=== PATIENT | female | born 1985 | race Caucasian/White ===

== ENCOUNTER → 2016-06-06 | Outpatient (CLI) | payer BC ==
[~2016-06-06] MED LIST: AMBI5TAB PO; DIPH1TAB36 PO; MOBI15TA PO; PERC5TAB12 PO; ULTR50TA5 PO; ZOFR8TAB4 SL
[2016-06-06 14:17] LABS: BLOOD, URINE MOD (NEG); COMMENT (UR) CULT NOT INDICATED; CULTURE IF INDICATED CULT NOT INDICATED; GLUCOSE,URINE NEG (NEG); KETONE, URINE NEG (NEG); MUCUS URINE FEW /lpf (OCC); NITRITE,URINE NEG (NEG); SQUAMOUS EPITHELIAL CELL URINE 4 /hpf (0-5); URINE COLOR LIGHT-YELLOW (YELLW/STRAW)
[2016-06-06 14:24] LABS: BETA HCG QUANT LESS THAN 1 MIU/ML (0-5)
--- NOTE | 2016-06-13 09:14 | EKG ---
Date Performed: 06/06/2016 Time Performed: 13:34:19 PTAGE: 31 years EKG: Sinus rhythm POSSIBLE LEFT ATRIAL ENLARGEMENT POSSIBLE RIGHT VENTRICULAR CONDUCTION DELAY BORDERLINE ECG Compared to prior tracing no significant change NO PREVIOUS TRACING DOCTOR: Lester Vasquez Interpretating Date/Time 06/13/2016 09:13:01
== END ==
LOC: CPRE 13:08
PROVIDERS: ATTEND Obstetrics & Gynecology
DX: Z01.810 Encounter for preprocedural cardiovascular examination (principal); Z01.811 Encounter for preprocedural respiratory examination; Z01.812 Encounter for preprocedural laboratory examination; I73.9 Peripheral vascular disease, unspecified; I71.4 Abdominal aortic aneurysm, without rupture
CPT/HCPCS: 36415; 81001; 84702; 93005

== ENCOUNTER 2016-06-08 11:01 | Inpatient (IN) | payer BC ==
--- NOTE | 2016-06-07 09:55 | MH ---
cc: APRIL RIOS DATE OF ADMISSION: 06/08/2016 ADMISSION DIAGNOSIS Menorrhagia, dysmenorrhea with multiple fibroids. HISTORY OF PRESENT ILLNESS The patient is a 31-year-old single white female, para 0-0-1-0, with a history of two years of increasing menstrual flow and menstrual pain refractory to OCPs and additional medical therapy. Her vaginal ultrasound from 02/20/2016 showed three exophytic fibroids and one in the body measuring 5.6 cm. Ovaries appeared normal. She is now admitted for myomectomy. PAST MEDICAL HISTORY PREVIOUS SURGERY Repair of right chest lacerations 11/13. MEDICATIONS Vitamins. ALLERGIES None. TRANSFUSIONS None. OBSTETRICAL HISTORY One spontaneous . SOCIAL HISTORY She is single. She works as a dental medical receptionist assistant. Alcohol occasional. Tobacco none. Drugs none. FAMILY HISTORY Non-contributory. PHYSICAL EXAMINATION GENERAL: A well-nourished, well-developed white female. VITAL SIGNS: Stable. HEENT: Exam is normal. CHEST: Clear. HEART: Regular rate. BREASTS: Symmetrical. ABDOMEN: Benign. PELVIC EXAM: Normal external genitalia and BUS. Vagina is normal. Cervix normal. Uterus enlarged at 14 weeks' size. Adnexa not palpable. ASSESSMENT As above. PLAN She is now admitted for laparoscopy with probable laparotomy, open myomectomy. I explained the procedures, the risks, benefits and complications including infection, injury, bleeding, probable need for delivery and the fact that recurrences are common and childbearing if desired should be planned in the next few years. The patient would like to proceed. MD YURI Rausch/MACI /9:33 AM /9:46 AM
[~2016-06-08] VITALS: Ht 175.3 cm; Wt 69.6 kg
[~2016-06-08 11:01] MED LIST changes: -AMBI5TAB PO; -MOBI15TA PO; -PERC5TAB12 PO; -ULTR50TA5 PO; -ZOFR8TAB4 SL
[2016-06-08] MEDS ORDERED: BUPIVACAINE LIPOSOME PF 1.3% 20 ML VIAL ONE (11:07)
[2016-06-08 11:36] VITALS: PULSE 66; RESP 18; TEMP 97.7; O2SAT 99
[2016-06-08] MEDS ORDERED: ACETAMINOPHEN 1000 MG/100 ML VIAL IV ONE (11:37)
[2016-06-08] MEDS ORDERED: ceFAZolin 2 GM PREMIX 50 ML ONE (11:37)
[2016-06-08 11:59] VITALS: BP 125/80
[2016-06-08] MEDS ORDERED: KETOROLAC TROMETHAMINE 60 MG/2 ML (IM) VIAL IM ONE (12:00)
[2016-06-08] MEDS ORDERED: ONDANSETRON HCL 4 MG/2 ML VIAL IV PUSH ONE (12:00)
[2016-06-08] MEDS ORDERED: PROPOFOL 200 MG/20 ML AMP IV ONE (12:00)
[2016-06-08] MEDS ORDERED: NEOSTIGMINE 3 MG/3 ML SYR IV ONE (12:00)
[2016-06-08] MEDS ORDERED: LACTATED RINGER'S 1000 ML INJ 1,000 ML IV ONE (12:00)
[2016-06-08] MEDS ORDERED: SODIUM CHLORID 0.9% 500 ML IV SCH (12:15)
[2016-06-08] MEDS ORDERED: ceFAZolin 2 GM PREMIX 50 ML IV SCH (12:15)
[2016-06-08] MEDS ORDERED: INSULIN HUMAN REGULAR 1,000 UNITS/10 ML VIAL SQ PRN (12:15)
[2016-06-08] MEDS ORDERED: METOPROLOL TARTRATE 25 MG TAB PO PRN (12:15)
[2016-06-08] MEDS ORDERED: ACETAMINOPHEN 1000 MG/100 ML VIAL IV SCH (12:15)
[2016-06-08] MEDS ORDERED: LACTATED RINGER'S 1000 ML IV SCH (12:15)
[2016-06-08] MEDS ORDERED: DEXAMETHASONE SOD PHOS 4 MG/ML VIAL ONE (12:17)
[2016-06-08] MEDS ORDERED: MIDAZOLAM HCL 2 MG/2 ML VIAL ONE ×2 (12:17→17:06)
[2016-06-08] MEDS ORDERED: FAMOTIDINE 20 MG/2 ML VIAL ONE (12:17)
[2016-06-08] MEDS ORDERED: HYDROmorphone HCL PF 1 MG/ML VIAL IV PRN (14:30)
[2016-06-08] MEDS: KETOROLAC TROMETHAMINE 30 MG/ML (IVP) VIAL IVP SCH ×2 (14:30→21:35)
[2016-06-08] MEDS ORDERED: diphenhydrAMINE HCL 25 MG CAP PO PRN (14:30)
[2016-06-08] MEDS ORDERED: SODIUM CHLORIDE 0.9% FLUSH 5 ML FLUSH FLUSH PRN (14:30)
[2016-06-08] MEDS ORDERED: ONDANSETRON ODT 4 MG TAB PO PRN (14:30)
[2016-06-08] MEDS ORDERED: ONDANSETRON HCL 4 MG/2 ML VIAL IV PRN (14:30)
[2016-06-08] MEDS ORDERED: PROMETHAZINE INJ 25 MG/ML VIAL IM PRN (14:30)
[2016-06-08] MEDS ORDERED: PROMETHAZINE HCL 25 MG TAB PO PRN (14:30)
[2016-06-08] MEDS ORDERED: fentaNYL CITRATE 250 MCG/5 ML AMP ONE (14:53)
[2016-06-08] MEDS ORDERED: ONDANSETRON INJ 8 MG in DEXTROSE 5% IN WATER INJ 50 ML IV PRN ×2 (15:00)
[2016-06-08] MEDS ORDERED: *morphine SULFATE 8 MG/ML PERIprocedure ONLY ONE ×2 (15:05→15:52)
[2016-06-08] MEDS: D5-1/2 NS + KCL 20 MEQ INJ 1,000 ML IV SCH ×2 (15:15)
[2016-06-08] MEDS ORDERED: *MEPERIDINE 25 MG INJ VIAL PERIprocedural Use ONLY ONE (15:18)
[2016-06-08] MEDS ORDERED: *PROMETHAZINE 25 MG/ML VIAL PERIprocedural use ONLY ONE (15:23)
[2016-06-08 17:23] LABS: HEMATOCRIT 31.4 % (35.0-46.0); REVIEW FLAG FINAL
[2016-06-08 20:00] VITALS: BP 117/70; PULSE 84; RESP 16; TEMP 97.4; O2SAT 99
[2016-06-08] MEDS: ACETAMINOPHEN 1000 MG/100 ML VIAL IV SCH (20:49)
[2016-06-08] MEDS: ZOLPIDEM TARTRATE 5 MG TAB PO PRN (20:49)
[2016-06-08] MEDS ORDERED: SODIUM CHLORIDE 0.9% FLUSH 5 ML FLUSH FLUSH SCH (21:00)
[2016-06-09] VITALS: BP 109/60; PULSE 87; RESP 16; TEMP 97.9; O2SAT 97
[2016-06-09] MEDS: KETOROLAC TROMETHAMINE 30 MG/ML (IVP) VIAL IVP SCH ×4 (02:30→20:48)
[2016-06-09] MEDS: ACETAMINOPHEN 1000 MG/100 ML VIAL IV SCH ×3 (04:47→19:51)
[2016-06-09 05:00] VITALS: BP 104/60; PULSE 76; RESP 16; TEMP 98.1; O2SAT 96
[2016-06-09] MEDS: DOCUSATE SODIUM 100 MG CAP PO SCH ×2 (05:33→15:13)
[2016-06-09 06:02] LABS: BASOPHIL % 0.2 % (0.0-2.0); HEMATOCRIT 31.9 % (35.0-46.0); HEMO FLAGS DIFF FINAL; LYMPH % 12.5 % (9.0-44.0); LYMPHOCYTE # 1.6 TH/MM3 (1.0-4.8); MEAN CELL VOLUME 89.2 FL (80.0-100.0); MEAN CORPUSCULAR HGB CONC 34.8 % (32.0-36.0); MONO % 10.6 % (0.0-8.0); NEUT % 76.7 % (16.0-70.0); PLATELET COUNT 269 TH/MM3 (150-450); RED BLOOD COUNT 3.58 MIL/MM3 (4.00-5.30); WHITE BLOOD COUNT 13.1 TH/MM3 (4.0-11.0)
[2016-06-09 06:35] LABS: BICARBONATE 28.4 MEQ/L (21.0-32.0); POTASSIUM 4.2 MEQ/L (3.5-5.1)
--- NOTE | 2016-06-09 07:44 | MP ---
cc: GABRIELAPRIL DATE OF SURGERY 06/08/2016 PREOPERATIVE DIAGNOSIS Menorrhagia, dysmenorrhea secondary to uterine fibroids. POSTOPERATIVE DIAGNOSIS Menorrhagia, dysmenorrhea secondary to uterine fibroids. PROCEDURE PERFORMED Laparoscopy followed by laparotomy with open myomectomy, multiple. ANESTHESIA General ET. SURGEON April Blanchard MD EQUINE DENTIST Lian Laguna, JF ESTIMATED BLOOD LOSS 100 cc FLUIDS 1 liter crystalloid. OBJECTIVE FINDINGS Following the induction of adequate general endotracheal anesthesia, the patient was prepped and draped supine on the operating table in sterile fashion with the bladder being drained by Sanchez catheterization. The abdomen was opened through a 0.5-cm infraumbilical incision. A 5 port was placed, laparoscope inserted, a second port placed in the left lower quadrant. The uterus was about 14 weeks' size. At the fundus there were four fibroids that were subserosal and then anteriorly just to the right of the lower segment and the cervix was another 5-cm fibroid just beneath the bladder flap. That location was felt to be close to the ureter and major vessels so it was felt best to proceed with laparotomy. The laparoscope was withdrawn, the gas allowed to escape. The abdomen was opened through a 10-cm Pfannenstiel incision using knife to cut down through skin to the fascia. The fascia was opened transversely, stripped from the muscles, the rectus muscle split in the midline and the peritoneum was opened sharply without incident, laps and the elastic retractor placed. The bowel was packed from the operative field with moistened laps and the fibroid over the lower anterior segment was exposed. The bladder flap was taken off sharply and then the fibroid gently dissected free and sent for permanent study. The defect in the uterine wall was closed in two layers with interrupted sutures of Vicryl in [id number] fashion. Irrigation was performed and no bleeding was evident. Attention as now directed to the fundus and the posterior uterus where these fibroids were dissected free and sent for permanent study. There was one more about 5 cm, one more about 2 and two small 1-cm fibroids. These wounds were closed with interrupted sutures of 0 Vicryl in [id number] fashion. The tubes and ovaries were normal. The cul-de-sacs were clear. The appendix was normal. The liver edge was normal. Irrigation was performed, no bleeding was evident so the posterior wounds were closed in good approximation and were coated with Evacel. Attention now directed to the anterior site which was also not bleeding. The bladder flap was reapproximated with 0 Vicryl stitches interrupted and these wounds irrigated and then closed, covered with Evicel. All laps and retractors were removed. Counts were correct. The anterior peritoneum was closed with a running 2-0 Vicryl, the fascia with running locking stitch of 0 Vicryl from corner to midline and tied, the subcu with running 3-0 Vicryl and the skin with a running subcuticular 3-0 Monocryl. The small port sites were closed with 3-0 Monocryl, Dermabond applied, all counts correct and the patient was awakened and taken to Recovery in good condition. MD YURI Rausch/MACI /2:27 PM /7:25 AM EVELINE
[2016-06-09 08:00] VITALS: BP 106/72; PULSE 80; RESP 16; TEMP 98.4
[2016-06-09 12:00] VITALS: BP 105/68; PULSE 77; RESP 16; TEMP 98.3
[2016-06-09 16:00] VITALS: BP 102/68; PULSE 78; RESP 18; TEMP 98.8
[2016-06-09 19:30] VITALS: BP 104/59; PULSE 73; RESP 20; TEMP 97.9
[2016-06-09] MEDS: ZOLPIDEM TARTRATE 5 MG TAB PO PRN (20:48)
[2016-06-09] MEDS ORDERED: oxyCODONE/ACETAMINOPHEN 5 MG/325 MG TAB PO PRN (22:00)
[2016-06-10] MEDS: oxyCODONE/ACETAMINOPHEN 5 MG/325 MG TAB PO PRN ×2 (04:11→09:59)
[2016-06-10] MEDS: IBUPROFEN 600 MG TAB PO PRN ×2 (04:11→09:59)
[2016-06-10] MEDS: DOCUSATE SODIUM 100 MG CAP PO SCH (04:11)
[2016-06-10 04:18] VITALS: BP 107/70; PULSE 70; RESP 18; TEMP 97.8
[2016-06-10 08:15] VITALS: BP 121/80; PULSE 74; RESP 16; TEMP 98.4
[2016-06-10] MEDS ORDERED: ZOFR8TAB4 SL (11:49)
[2016-06-10] MEDS ORDERED: AMBI5TAB PO (11:49)
[2016-06-10] MEDS ORDERED: PERC5TAB12 PO (11:49)
--- NOTE | 2016-06-10 13:47 | HHI.DCPOC ---
Discharge Care Plan Diagnosis: (1) Dysmenorrhea (2) Menorrhagia Report Symptoms to Your Doctor -Temperate above 100.5 degrees -Redness, of incision or excessive or foul smelling drainage -Unusual pain or calf pain -Increased vaginal bleeding -Painful or difficulty urinating -Feelings of extreme sadness or anxiety after 2 weeks Goals to Promote Your Health * To prevent worsening of your condition and complications * To maintain your health at the optimal level Directions to Meet Your Goals Take your medications as prescribed Follow your dietary instruction Follow activity as directed Ensure plenty of rest for recovery Drink fluids for hydration Keep your appointments as scheduled Take your immunizations and boosters as scheduled If your symptoms worsen call your PCP, if no PCP go to Urgent Care Center or Emergency Room Smoking is Dangerous to Your Health. Avoid second hand smoke Call the 24-hour crisis hotline for domestic abuse at Sammy Yeung MD Jun 10, 2016 13:47
== END 2016-06-10 14:22 | disposition home or self-care (01) | DRG 743 ==
LOC: HSDC 11:01 → HSDI 14:30 → OBSVTOIN 14:30 → H1EA 18:54
PROVIDERS: ADMIT Obstetrics & Gynecology; ATTEND Obstetrics & Gynecology
PROC: 0UB90ZZ Excision of Uterus, Open Approach (ICD-10-PCS; principal; 2016-06-08 12:48)
PROC: 0UJD4ZZ Inspection of Uterus and Cervix, Percutaneous Endoscopic Approach (ICD-10-PCS; 2016-06-08 12:48)
DX: D25.2 Subserosal leiomyoma of uterus (principal); N94.6 Dysmenorrhea, unspecified; N92.0 Excessive and frequent menstruation with regular cycle
CPT/HCPCS: 36415; 80048; 81001; 84702; 85014; 85018; 85025; 88305; 93005; C9290; J0131; J0690; J1100; J1885; J2175; J2250; J2270; J2405; J2550; J2710; J3010; J3480; J7120